=== PATIENT | female | born 1945 | race Caucasian/White ===

== ENCOUNTER → 2018-12-28 | Outpatient (CLI) | payer OTHER ==
--- NOTE | 2018-12-28 11:03 | 2DMMODE ---
[facility] [employer] [place] [address] 2 D/M-MODE ECHOCARDIOGRAM Name: ARNOLD WILSON Room #: REG Jaden#: [id number] Admission: 12/28/18 Attend Phys: Bob Jacobs Discharge: Date of : 43 Date of Service: 12/28/18 1103 Report #: [id number] THIS REPORT FOR: //name// APPROVED REPORT Study performed: 12/28/2018 09:56:20 EXAM: Comprehensive 2D, Doppler, and color-flow Echocardiogram Patient Location: Out-Patient Room #: Echo lab 2 Status: routine BSA: 1.53 HR: 57 bpm BP: 110/70 mmHg Rhythm: Bradycardia Other Information Study Quality: Good Indications Atrial Fibrillation Hypertension/HDD 2D Dimensions RVDd: 36.68 mm IVSd: 7.05 (7-11mm) LVOT Diam: 19.20 (18-24mm) LVDd: 44.13 mm PWd: 8.02 (7-11mm) Ascending Ao: 30.25 (22-36mm) LVDs: 29.74 (25-40mm) Aortic Root: 28.69 mm IVC: 19.00 mm Volumes Left Atrial Volume (Systole) Single Plane 4CH: 20.11 mL Single Plane 2CH: 10.71 mL LA ESV Index: 11.00 mL/m2 Aortic Valve AoV Peak Sam.: 1.01 m/s AO Peak Gr.: 4.10 mmHg LVOT Max P.58 mmHg LVOT Max V: 0.80 m/s JAI Vmax: 2.29 cm2 Mitral Valve E/A Ratio: 1.3 MV Decel. Time: 165.19 ms [facility] [employer] [place] [address] 2 D/M-MODE ECHOCARDIOGRAM Name: CATHY WILSONRED Room #: [facility]#: [id number] Admission: 12/28/18 Attend Phys: Bob Jacobs Discharge: Date of : 43 Date of Service: 12/28/18 1103 Report #: [id number] MV E Max Sam.: 0.80 m/s MV A Sam.: 0.63 m/s MV PHT: 47.90 ms IVRT: 92.27 ms Pulmonary Valve PV Peak Sam.: 0.71 m/s PV Peak Gr.: 2.02 mmHg Pulmonary Vein P Vein S: 0.57 m/s P Vein A: 0.27 m/s P Vein D: 0.36 m/s P Vein A Dur.: 110.7 msec P Vein S/D Ratio: 1.58 Tricuspid Valve TR Peak Sam.: 2.36 m/s TR Peak Gr.: 22.28 mmHg PA Pressure: 27.00 mmHg Left Ventricle The left ventricle is normal size. There is normal LV segmental wall motion. There is normal left ventricular wall thickness. Left ventricular systolic function is normal. The left ventricular ejection fraction is within the normal range. LVEF is 55-60%. Grade II - pseudonormal filling dynamics. Right Ventricle The right ventricle is normal size. The right ventricular systolic function is normal. Atria The left atrium size is normal. The right atrium size is normal. Aortic Valve The aortic valve is normal in structure. Trace aortic regurgitation. There is no aortic valvular stenosis. Mitral Valve The mitral valve is normal in structure. Mild mitral regurgitation. No evidence of mitral valve stenosis. Tricuspid Valve The tricuspid valve is normal in structure. Trace tricuspid regurgitation. Estimated PAP 27 mmHg. Pulmonic Valve [facility] [address] [place] [address] 2 D/M-MODE ECHOCARDIOGRAM Name: CATHY WILSONRED Room #: [facility] Jaden#: [id number] Admission: 12/28/18 Attend Phys: Bob Jacobs Discharge: Date of : 43 Date of Service: 12/28/18 1103 Report #: [id number] The pulmonary valve is normal in structure. Trace pulmonic regurgitation. Great Vessels The aortic root is normal in size. IVC is normal in size and collapses >50% with inspiration. Pericardium There is no pericardial effusion. <Conclusion> The left ventricle is normal size. There is normal left ventricular wall thickness. Left ventricular systolic function is normal. The right ventricle is normal size. The left atrium size is normal. Trace aortic regurgitation. Mild mitral regurgitation. Trace tricuspid regurgitation. There is no pulmonary hypertension. Estimated PAP 27 mmHg. <ELECTRONICALLY SIGNED> By: Ricardo Galvan MD 12/28/18 1103 110 02 Ricardo Galvan MD /INF
== END ==
LOC: CV 09:44
DX: I34.0 Nonrheumatic mitral (valve) insufficiency (principal); I10 Essential (primary) hypertension; I48.91 Unspecified atrial fibrillation

== ENCOUNTER → 2018-12-30 | Outpatient (CLI) | payer OTHER | LOC: NUC 08:40 | DX: I48.91 Unspecified atrial fibrillation (principal); I10 Essential (primary) hypertension ==

== ENCOUNTER → 2019-07-21 | Outpatient (CLI) | payer OTHER | LOC: SJCVC 13:53 | DX: I48.0 Paroxysmal atrial fibrillation (principal); I10 Essential (primary) hypertension; Z79.899 Other long term (current) drug therapy; Z90.49 Acquired absence of other specified parts of digestive tract ==

== ENCOUNTER → 2020-07-19 | Outpatient (CLI) | payer OTHER | LOC: SJCVC 14:31 | PROVIDERS: ATTEND Internal Medicine Cardiovascular Disease | DX: R94.31 Abnormal electrocardiogram [ECG] [EKG] (principal); R00.1 Bradycardia, unspecified; I48.0 Paroxysmal atrial fibrillation; I10 Essential (primary) hypertension; Z79.899 Other long term (current) drug therapy; Z72.89 Other problems related to lifestyle ==